=== PATIENT | male | born 1995 | race Two or more races ===

== ENCOUNTER 2017-07-15 17:13 | Emergency (ER) | payer MEDICAID, OTHER ==
[~2017-07-15] VITALS: Ht 165.1 cm; Wt 65.8 kg
[2017-07-15 17:20] VITALS: BP 151/82
[2017-07-15] MEDS ORDERED: IBUPROFEN 600 MG TAB PO ONE (21:45)
== END 2017-07-15 23:15 | disposition home or self-care (01) ==
LOC: ER 17:18
DX: S80.02XA Contusion of left knee, initial encounter (principal); M79.1 Myalgia; V43.52XA Car driver injured in collision with other type car in traffic accident, initial encounter; Y93.89 Activity, other specified; Y92.89 Other specified places as the place of occurrence of the external cause; Y99.8 Other external cause status
CPT/HCPCS: 29505; 73562